=== PATIENT | male | born 1945 | race African-American/Black ===

== ENCOUNTER 2018-02-23 16:38 | Inpatient (IN) | payer MEDICARE, MEDICAID ==
[~2018-02-23] VITALS: Ht 195.6 cm; Wt 74.0 kg
[2018-02-23] MEDS ORDERED: Aspirin Baby 81mg ORAL ONE (16:45)
[2018-02-23 17:49] VITALS: BP 131/77
--- NOTE | 2018-02-23 18:14 | Emergency Room Report ---
History of Present Illness General Chief Complaint: General Complaint Source: Patient, Medical Record, EMS Present Illness HPI Patient presents emergency department today with multiple complaints. Patient states that he has been feeling dizzy weak now has developed acute onset of left -sided chest pain. Complains mild shortness of breath denies any fever nausea vomiting diarrhea chills present noted to be moderate to severe. No other modifying factors. No other associated signs and symptoms. No other complaints were noted. Allergies: Coded Allergies: No Known Allergies (Unverified , 07/25/15) Patient History Past Medical History: HTN, other - Abdominal s Past Surgical History: none Pertinent Family History: none Social History: Denies: smoking, alcohol use, drug use Reviewed Nursing Documentation: PMH: Agreed; PSxH: Agreed Nursing Documentation-PMH Past Medical History: No History, Except For Hx Hypertension: Yes Hx Gastrointestinal Problems: Yes - ABD SURGERY Review of Systems All Other Systems: negative except mentioned in HPI Physical Exam Vital Signs Date Time Temp Pulse Resp B/P (MAP) Pulse Ox O2 Delivery O2 Flow Rate FiO2 02/23/18 16:34 98.1 92 18 140/91 96 Room Air 98.1 Sp02 EP Interpretation: reviewed, normal General Appearance: normal inspection, well appearing, no apparent distress, alert Head: atraumatic Eyes: bilateral eye normal inspection ENT: normal ENT inspection, hearing grossly normal, normal voice Neck: normal inspection, full range of motion, supple, no bony tend Respiratory: normal inspection, lungs clear, normal breath sounds, no respiratory distress, no retraction, no wheezing Cardiovascular #1: regular rate, rhythm, no edema Gastrointestinal: normal inspection, normal bowel sounds, non tender, soft, no guarding, no hernia Genitourinary: no CVA tenderness Musculoskeletal: normal inspection, back normal, normal range of motion Neurologic: normal inspection, alert, responsive, speech normal Psychiatric: normal inspection, judgement/insight normal, mood/affect normal Skin: normal inspection, normal color, no rash Medical Decision Making Diagnostic Impression: Primary Impression: ACS (acute coronary syndrome) Additional Impression: Dizzy ER Course Patient presented to the emergency department today complaining of chest pain. Differential diagnoses include acute coronary syndrome, pulmonary embolism, pneumothorax, chest wall pain, pleurisy, pericarditis, acute anxiety reaction just to name a few. Given the severity of the patient's presentation I felt this is a highly complex patient. This patient required extensive workup. CBC , chemistry, EKG, chest x-ray, cardiac enzymes, liver profile were all obtained. 12-lead EKG performed for nontraumatic chest pain. [facility] documentation: EKG was performed. Please refer to below for interpretation.Patient had CBC and chemistry obtained. Both of which were normal. Patient's cardiac enzymes also normal. Except for slightly elevated CK. Patient had normal chest x-ray. Patient's EKG and rhythm strip are also normal. Given patient's risk factors advanced age I felt the patient require admission for further treatment. Case was discussed with Dr. Maura Love for admission. Labs Test 02/23/18 18:30 White Blood Count 4.7 K/UL (4.8-10.8) Red Blood Count 4.00 M/UL (4.70-6.10) Hemoglobin 12.3 G/DL (14.2-18.0) Hematocrit 38.4 % (42.0-52.0) Mean Corpuscular Volume 96 FL (80-99) Mean Corpuscular Hemoglobin 30.8 PG (27.0-31.0) Mean Corpuscular Hemoglobin Concent 32.0 G/DL (32.0-36.0) Red Cell Distribution Width 11.5 % (11.6-14.8) Platelet Count 188 K/UL (150-450) Mean Platelet Volume 7.2 FL (6.5-10.1) Neutrophils (%) (Auto) 45.2 % (45.0-75.0) Lymphocytes (%) (Auto) 42.9 % (20.0-45.0) Monocytes (%) (Auto) 6.5 % (1.0-10.0) Eosinophils (%) (Auto) 3.2 % (0.0-3.0) Basophils (%) (Auto) 2.3 % (0.0-2.0) Sodium Level 140 MMOL/L (136-145) Potassium Level 3.8 MMOL/L (3.5-5.1) Chloride Level 99 MMOL/L (98-107) Carbon Dioxide Level 34 MMOL/L (21-32) Anion Gap 7 mmol/L (5-15) Blood Urea Nitrogen 9 mg/dL (7-18) Creatinine 1.1 MG/DL (0.55-1.30) Estimat Glomerular Filtration Rate mL/min (>60) Glucose Level 83 MG/DL (74-106) Calcium Level 10.4 MG/DL (8.5-10.1) Total Bilirubin 0.6 MG/DL (0.2-1.0) Aspartate Amino Transf (AST/SGOT) 45 U/L (15-37) Alanine Aminotransferase (ALT/SGPT) 36 U/L (12-78) Alkaline Phosphatase 61 U/L (46-116) Total Creatine Kinase 501 U/L (26-308) Creatine Kinase MB 6.1 NG/ML (0.0-3.6) Creatine Kinase MB Relative Index 1.2 Troponin I 0.000 ng/mL (0.000-0.056) Pro-B-Type Natriuretic Peptide 105 pg/mL (0-125) Total Protein 9.6 G/DL (6.4-8.2) Albumin 4.3 G/DL (3.4-5.0) Globulin 5.3 g/dL Albumin/Globulin Ratio 0.8 (1.0-2.7) EKG Diagnostic Results Rate: normal Rhythm: NSR ST Segments: no acute changes Rhythm Strip Diag. Results EP Interpretation: yes Rate: 92 Rhythm: NSR, no PVC's, no ectopy Chest X-Ray Diagnostic Results Chest X-Ray Diagnostic Results : Chest X-Ray Ordered: Yes # of Views/Limited/Complete: 1 View Indication: Chest Pain EP Interpretation: Yes Interpretation: no consolidation, no effusion, no pneumothorax, no acute cardiopulmonary disease Impression: No acute disease Electronically Signed by: Electronically signed by Reji aMnzo MD Last Vital Signs Date Time Temp Pulse Resp B/P (MAP) Pulse Ox O2 Delivery O2 Flow Rate FiO2 02/23/18 17:49 77 17 131/77 97 Room Air 02/23/18 16:34 98.1 98.1 Status: improved Disposition: ADMITTED INPATIENT Condition: Serious Referrals: NON PHYSICIAN (PCP) Reji Manzo MD Feb 23, 2018 18:14
[2018-02-23 18:46] LABS: BASOPHILS % (AUTO) 2.3 % (0.0-2.0); EOSINOPHILS % (AUTO) 3.2 % (0.0-3.0); HEMATOCRIT 38.4 % (42.0-52.0); HEMOGLOBIN 12.3 G/DL (14.2-18.0); LYMPHOCYTES % (AUTO) 42.9 % (20.0-45.0); MEAN CORPUSCULAR VOLUME 96 FL (80-99); MONOCYTES % (AUTO) 6.5 % (1.0-10.0); NEUTROPHILS % (AUTO) 45.2 % (45.0-75.0); PLATELET COUNT 188 K/UL (150-450); RED CELL DISTRIBUTION WIDTH 11.5 % (11.6-14.8); WHITE BLOOD COUNT 4.7 K/UL (4.8-10.8)
[2018-02-23 18:52] LABS: ANION GAP 7 mmol/L (5-15); BLOOD UREA NITROGEN 9 mg/dL (7-18); CALCIUM 10.4 MG/DL (8.5-10.1); CARBON DIOXIDE 34 MMOL/L (21-32); CHLORIDE 99 MMOL/L (98-107); CREATININE 1.1 MG/DL (0.55-1.30); POTASSIUM 3.8 MMOL/L (3.5-5.1); SODIUM 140 MMOL/L (136-145)
[2018-02-23 19:05] LABS: ALANINE AMINOTRANSFERASE 36 U/L (12-78); ALBUMIN 4.3 G/DL (3.4-5.0); ALBUMIN/GLOBULIN RATIO 0.8 (1.0-2.7); ALKALINE PHOSPHATASE 61 U/L (46-116); ASPARTATE AMINO TRANSFERASE 45 U/L (15-37); BILIRUBIN,TOTAL 0.6 MG/DL (0.2-1.0); CKMB 6.1 NG/ML (0.0-3.6); CREATINE KINASE 501 U/L (26-308)
[2018-02-23 19:35] VITALS: BP 146/80
[2018-02-23 21:30] VITALS: BP 152/98
--- NOTE | 2018-02-23 23:13 | Cardiology Progress Note ---
Assessment/Plan Assessment/Plan The patient is seen and examined, full consult note will be dictated soon. Objective Last 24 Hour Vital Signs Date Time Temp Pulse Resp B/P (MAP) Pulse Ox O2 Delivery O2 Flow Rate FiO2 02/23/18 17:49 77 17 131/77 97 Room Air 02/23/18 16:34 98.1 92 18 140/91 96 Room Air 98.1 Laboratory Tests Test 02/23/18 18:30 White Blood Count 4.7 K/UL (4.8-10.8) L Red Blood Count 4.00 M/UL (4.70-6.10) L Hemoglobin 12.3 G/DL (14.2-18.0) L Hematocrit 38.4 % (42.0-52.0) L Mean Corpuscular Volume 96 FL (80-99) Mean Corpuscular Hemoglobin 30.8 PG (27.0-31.0) Mean Corpuscular Hemoglobin Concent 32.0 G/DL (32.0-36.0) Red Cell Distribution Width 11.5 % (11.6-14.8) L Platelet Count 188 K/UL (150-450) Mean Platelet Volume 7.2 FL (6.5-10.1) Neutrophils (%) (Auto) 45.2 % (45.0-75.0) Lymphocytes (%) (Auto) 42.9 % (20.0-45.0) Monocytes (%) (Auto) 6.5 % (1.0-10.0) Eosinophils (%) (Auto) 3.2 % (0.0-3.0) H Basophils (%) (Auto) 2.3 % (0.0-2.0) H Sodium Level 140 MMOL/L (136-145) Potassium Level 3.8 MMOL/L (3.5-5.1) Chloride Level 99 MMOL/L (98-107) Carbon Dioxide Level 34 MMOL/L (21-32) H Anion Gap 7 mmol/L (5-15) Blood Urea Nitrogen 9 mg/dL (7-18) Creatinine 1.1 MG/DL (0.55-1.30) Estimat Glomerular Filtration Rate mL/min (>60) Glucose Level 83 MG/DL (74-106) Calcium Level 10.4 MG/DL (8.5-10.1) H Total Bilirubin 0.6 MG/DL (0.2-1.0) Aspartate Amino Transf (AST/SGOT) 45 U/L (15-37) H Alanine Aminotransferase (ALT/SGPT) 36 U/L (12-78) Alkaline Phosphatase 61 U/L (46-116) Total Creatine Kinase 501 U/L (26-308) H Creatine Kinase MB 6.1 NG/ML (0.0-3.6) H Creatine Kinase MB Relative Index 1.2 Troponin I 0.000 ng/mL (0.000-0.056) Pro-B-Type Natriuretic Peptide 105 pg/mL (0-125) Total Protein 9.6 G/DL (6.4-8.2) H Albumin 4.3 G/DL (3.4-5.0) Globulin 5.3 g/dL Albumin/Globulin Ratio 0.8 (1.0-2.7) L Ramez Fiore MD Feb 23, 2018 23:13
[2018-02-24] MEDS ORDERED: Triamterene/Hctz 37.5/25 cap ORAL SCH (09:00)
--- NOTE | 2018-02-24 09:21 | Consultation ---
History of Present Illness General Date patient seen: Feb 24, 2018 Chief Complaint: Present Illness Allergies: Coded Allergies: No Known Allergies (Unverified , 07/25/15) Patient History Healthcare decision maker Resuscitation status Full Code Advanced Directive on File No Physical Exam Last 24 Hour Vital Signs Date Time Temp Pulse Resp B/P (MAP) Pulse Ox O2 Delivery O2 Flow Rate FiO2 02/24/18 04:00 69 02/24/18 00:00 59 02/23/18 23:00 Room Air 02/23/18 21:45 98.1 77 15 152/98 96 Room Air 98.1 02/23/18 21:35 83 02/23/18 21:30 97.2 86 15 152/98 99 Room Air 97.2 02/23/18 21:00 Room Air 02/23/18 19:35 97.9 80 17 146/80 99 Room Air 97.9 02/23/18 17:49 77 17 131/77 97 Room Air 02/23/18 16:34 98.1 92 18 140/91 96 Room Air 98.1 Intake and Output 02/23/18 02/24/18 19:00 07:00 Intake Total 120 ml Output Total 800 ml Balance -680 ml Intake Oral 120 ml Output Urine Total 800 ml # Voids 2 Laboratory Tests Test 02/23/18 18:30 02/23/18 23:45 White Blood Count 4.7 K/UL (4.8-10.8) L Red Blood Count 4.00 M/UL (4.70-6.10) L Hemoglobin 12.3 G/DL (14.2-18.0) L Hematocrit 38.4 % (42.0-52.0) L Mean Corpuscular Volume 96 FL (80-99) Mean Corpuscular Hemoglobin 30.8 PG (27.0-31.0) Mean Corpuscular Hemoglobin Concent 32.0 G/DL (32.0-36.0) Red Cell Distribution Width 11.5 % (11.6-14.8) L Platelet Count 188 K/UL (150-450) Mean Platelet Volume 7.2 FL (6.5-10.1) Neutrophils (%) (Auto) 45.2 % (45.0-75.0) Lymphocytes (%) (Auto) 42.9 % (20.0-45.0) Monocytes (%) (Auto) 6.5 % (1.0-10.0) Eosinophils (%) (Auto) 3.2 % (0.0-3.0) H Basophils (%) (Auto) 2.3 % (0.0-2.0) H Sodium Level 140 MMOL/L (136-145) Potassium Level 3.8 MMOL/L (3.5-5.1) Chloride Level 99 MMOL/L (98-107) Carbon Dioxide Level 34 MMOL/L (21-32) H Anion Gap 7 mmol/L (5-15) Blood Urea Nitrogen 9 mg/dL (7-18) Creatinine 1.1 MG/DL (0.55-1.30) Estimat Glomerular Filtration Rate mL/min (>60) Glucose Level 83 MG/DL (74-106) Calcium Level 10.4 MG/DL (8.5-10.1) H Total Bilirubin 0.6 MG/DL (0.2-1.0) Aspartate Amino Transf (AST/SGOT) 45 U/L (15-37) H Alanine Aminotransferase (ALT/SGPT) 36 U/L (12-78) Alkaline Phosphatase 61 U/L (46-116) Total Creatine Kinase 501 U/L (26-308) H Creatine Kinase MB 6.1 NG/ML (0.0-3.6) H Creatine Kinase MB Relative Index 1.2 Troponin I 0.000 ng/mL (0.000-0.056) 0.000 ng/mL (0.000-0.056) Pro-B-Type Natriuretic Peptide 105 pg/mL (0-125) Total Protein 9.6 G/DL (6.4-8.2) H Albumin 4.3 G/DL (3.4-5.0) Globulin 5.3 g/dL Albumin/Globulin Ratio 0.8 (1.0-2.7) L Height (Feet): 6 Height (Inches): 5.00 Weight (Pounds): 163 Medications Current Medications Medications (Trade) Dose Ordered Sig/Tena Route PRN Reason Start Time Stop Time Status Last Admin Dose Admin Acetaminophen (Tylenol) 650 mg Q4H PRN ORAL Mild Pain/Temp > 100.5 02/24/18 00:15 03/26/18 00:14 02/24/18 00:47 Aspirin (Ecotrin) 81 mg DAILY ORAL 02/24/18 09:00 03/26/18 08:59 Triamterene/HCTZ (Dyazide) 1 cap DAILY ORAL 02/24/18 09:00 03/26/18 08:59 Assessment/Plan Assessment/Plan (1) H/o Heroin abuse on methadone seen dictated. Emir Solorzano Feb 24, 2018 09:21
--- NOTE | 2018-02-24 09:32 | Diagnostic Imaging Report ---
Indication: Dizziness, right-sided numbness, blurry vision, pain since this morning Technique: spiral acquisitions obtained through the brain. Angled axial and coronal 5 x 5 mm slices were reconstructed. No IV contrast utilized. Radiation dose was minimized using automated exposure control Total dose length product 1516.84 mGycm. CTDIvol(s) 70.38 mGy Comparison: none FINDINGS: No acute hemorrhage or edema. No mass effect or midline shift. There is age-related enlargement of the ventricles and extra axial CSF spaces. There is periventricular deep white matter ischemic change. Normal kendall-white differentiation. Visualized orbits are unremarkable. Visualized sinuses are unremarkable. Intact calvarium. IMPRESSION: Chronic and age-related changes. Negative for acute intracranial bleed or mass effect This agrees with the preliminary interpretation provided overnight by Dr. Caldwell The CT scanner at [facility] is accredited by the [employer] and the scans are performed using protocols designed to limit radiation exposure to as low as reasonably achievable to attain images of sufficient resolution adequate for diagnostic evaluation
[2018-02-24] MEDS: Aspirin EC 81mg tab ORAL SCH (09:41)
--- NOTE | 2018-02-24 11:45 | Consultation ---
History of Present Illness General Date patient seen: Feb 24, 2018 Chief Complaint: General Complaint Present Illness HPI The patient is a 72 yo male with hx of depression and opioid dependence who presents emergency department with multiple complaints. During the eval the pt appears depressed and anxious. the pt is having pain seeking behavior. the pt stated that he has low appetite and not sleeping. the pt stated that he has pain all the time. Allergies: Coded Allergies: No Known Allergies (Unverified , 07/25/15) Patient History Limited by: medical condition History Provided By: Patient, Medical Record Healthcare decision maker Resuscitation status Full Code Advanced Directive on File No Past Medical/Surgical History Past Medical/Surgical History: (1) Abdominal pain (2) Dizzy (3) ACS (acute coronary syndrome) Review of Systems Psychiatric: Reports: prior hx, anxiety, depressed feelings Physical Exam General Appearance: no apparent distress, alert Neurologic: oriented x 3, responsive, depressed affect Last 24 Hour Vital Signs Date Time Temp Pulse Resp B/P (MAP) Pulse Ox O2 Delivery O2 Flow Rate FiO2 02/24/18 04:00 69 02/24/18 00:00 59 02/23/18 23:00 Room Air 02/23/18 21:45 98.1 77 15 152/98 96 Room Air 98.1 02/23/18 21:35 83 02/23/18 21:30 97.2 86 15 152/98 99 Room Air 97.2 02/23/18 21:00 Room Air 02/23/18 19:35 97.9 80 17 146/80 99 Room Air 97.9 02/23/18 17:49 77 17 131/77 97 Room Air 02/23/18 16:34 98.1 92 18 140/91 96 Room Air 98.1 Intake and Output 02/23/18 02/24/18 19:00 07:00 Intake Total 120 ml Output Total 800 ml Balance -680 ml Intake Oral 120 ml Output Urine Total 800 ml # Voids 2 Laboratory Tests Test 02/23/18 18:30 02/23/18 23:45 White Blood Count 4.7 K/UL (4.8-10.8) L Red Blood Count 4.00 M/UL (4.70-6.10) L Hemoglobin 12.3 G/DL (14.2-18.0) L Hematocrit 38.4 % (42.0-52.0) L Mean Corpuscular Volume 96 FL (80-99) Mean Corpuscular Hemoglobin 30.8 PG (27.0-31.0) Mean Corpuscular Hemoglobin Concent 32.0 G/DL (32.0-36.0) Red Cell Distribution Width 11.5 % (11.6-14.8) L Platelet Count 188 K/UL (150-450) Mean Platelet Volume 7.2 FL (6.5-10.1) Neutrophils (%) (Auto) 45.2 % (45.0-75.0) Lymphocytes (%) (Auto) 42.9 % (20.0-45.0) Monocytes (%) (Auto) 6.5 % (1.0-10.0) Eosinophils (%) (Auto) 3.2 % (0.0-3.0) H Basophils (%) (Auto) 2.3 % (0.0-2.0) H Sodium Level 140 MMOL/L (136-145) Potassium Level 3.8 MMOL/L (3.5-5.1) Chloride Level 99 MMOL/L (98-107) Carbon Dioxide Level 34 MMOL/L (21-32) H Anion Gap 7 mmol/L (5-15) Blood Urea Nitrogen 9 mg/dL (7-18) Creatinine 1.1 MG/DL (0.55-1.30) Estimat Glomerular Filtration Rate mL/min (>60) Glucose Level 83 MG/DL (74-106) Calcium Level 10.4 MG/DL (8.5-10.1) H Total Bilirubin 0.6 MG/DL (0.2-1.0) Aspartate Amino Transf (AST/SGOT) 45 U/L (15-37) H Alanine Aminotransferase (ALT/SGPT) 36 U/L (12-78) Alkaline Phosphatase 61 U/L (46-116) Total Creatine Kinase 501 U/L (26-308) H Creatine Kinase MB 6.1 NG/ML (0.0-3.6) H Creatine Kinase MB Relative Index 1.2 Troponin I 0.000 ng/mL (0.000-0.056) 0.000 ng/mL (0.000-0.056) Pro-B-Type Natriuretic Peptide 105 pg/mL (0-125) Total Protein 9.6 G/DL (6.4-8.2) H Albumin 4.3 G/DL (3.4-5.0) Globulin 5.3 g/dL Albumin/Globulin Ratio 0.8 (1.0-2.7) L Height (Feet): 6 Height (Inches): 5.00 Weight (Pounds): 163 Medications Current Medications Medications (Trade) Dose Ordered Sig/Tena Route PRN Reason Start Time Stop Time Status Last Admin Dose Admin Acetaminophen (Tylenol) 650 mg Q4H PRN ORAL Mild Pain/Temp > 100.5 02/24/18 00:15 03/26/18 00:14 02/24/18 00:47 Aspirin (Ecotrin) 81 mg DAILY ORAL 02/24/18 09:00 03/26/18 08:59 02/24/18 09:41 Triamterene/HCTZ (Dyazide) 1 cap DAILY ORAL 02/24/18 09:00 03/26/18 08:59 02/24/18 09:41 Assessment/Plan Status: stable Assessment/Plan MDD Opioid dependence -methadone 38mg daily -prozac 20mg qam -provided ro/Ming Jimenez MD Feb 24, 2018 11:45
[2018-02-24 12:00] VITALS: BP 155/46
--- NOTE | 2018-02-24 13:01 | Diagnostic Imaging Report ---
Indication: Cough Technique: One view of the chest Comparison: none Findings: Lungs and pleural spaces are clear. Heart size is normal Impression: No acute process
[2018-02-24 13:27] VITALS: BP 155/46
[2018-02-24 16:00] VITALS: BP 145/102
--- NOTE | 2018-02-24 16:00 | Consultation ---
DATE OF CONSULTATION: 02/23/2018 CARDIOLOGY CONSULTATION CONSULTING PHYSICIAN: Raemz Fiore M.D. REFERRING PHYSICIAN: Maura Cardenas M.D. REASON FOR CONSULTATION: Management of chest pain. HISTORY OF PRESENT ILLNESS: The patient is an very unfortunate 72-year-old gentleman who presents to the emergency department with mainly complains of dizziness and lightheadedness as well a great deal of weight loss. The patient upon arrival to the emergency department had also some complaints of chest pain and shortness of breath. Initial blood pressure at time of arrival to the hospital was 140/91, pulse of 92. A 12-lead electrocardiogram was significant for sinus rhythm at 92 with evidence of left ventricular hypertrophy but no acute ST and T-wave abnormalities. The patient had initial laboratory in the emergency department, which showed negative troponin I level and beta-natriuretic peptide of 105 which is within normal limits. PAST MEDICAL HISTORY: 1. Abdominal pain. 2. Hiccups. 3. Hypertension. PAST SURGICAL HISTORY: Abdominal surgery. MEDICATIONS: List of medications, none. ALLERGIES: No known drug allergies. FAMILY HISTORY: No premature coronary artery disease in first-degree relatives. SOCIAL HISTORY: Denies any tobacco, alcohol, or illicit drug use. REVIEW OF SYSTEMS: Complains of dizziness and lightheadedness.CONSTITUTIONAL: Generalized weakness. A great deal of weight loss recently. He denies any fever, chills, or night sweats. CVS: Chest pain as mentioned above in the left precordial area sharp associated shortness of breath but no PND, orthopnea, leg swelling, syncope, or palpitation. PULMONARY: Denies any cough, hemoptysis, or wheezing. GASTROINTESTINAL: Constant hiccupping, abdominal pain. Denies any nausea, vomiting, diarrhea. Complains of constipation but no GI bleed. GENITOURINARY: Denies any hematuria, dysuria, incontinence. NEUROLOGY: Denies any motor dysfunction, sensory deficit, or altered speech. PHYSICAL EXAMINATION: VITAL SIGNS: Blood pressure at time of arrival to the hospital was 140/91 respirations 18, pulse of 92, temperature 98.1 degrees Fahrenheit, and O2 saturation 96% on room air. GENERAL: The patient is a very unfortunate 72-year-old gentleman who appears cachectic, ambulatory with cane. HEENT: Atraumatic and normocephalic. Anicteric. Pupils are equal, round, and reactive to light and accommodation. Extraocular muscles intact. NECK: JVP less than 5 centimeter. No carotid bruit. Carotid upstrokes 2+ bilaterally. CARDIOVASCULAR: Normal S1, S2. Tachycardic. A 2/6 mid systolic murmur at the left sternal border. PMI is at fourth intercostal space at the midclavicular line. LUNGS: Clear to auscultation bilaterally. ABDOMEN: Soft, nontender, and nondistended. No hepatosplenomegaly. Positive bowel sounds. EXTREMITIES: No evidence of edema, clubbing, or cyanosis. LABORATORY AND DIAGNOSTIC DATA: A 12-lead electrocardiogram, sinus rhythm at a rate of 92 with LVH and no acute ischemic features. WBC is 4.7, hemoglobin 12.3, hematocrit 38.4, and platelet count is 188. Sodium was 140 potassium is 3.8, chloride 99, bicarbonate 34, BUN of 9, creatinine 1.1, glucose is 83, calcium is 10.4. Troponin I x1 is negative. BNP is 105. ASSESSMENT AND PLAN: The patient is a very unfortunate 72-year-old gentleman seen in Cardiology consultation at request of Dr. Cardenas. 1. Most likely noncardiac chest pain. It appears that the patient's main problem of dizziness, lightheadedness, constant hiccupping, also great deal of weight loss as the patient shows significant bitemporal wasting. 2. He claims that he had recent endoscopies upper and lower done at [facility]. 3. Acute myocardial infarction is ruled out. A 12-lead electrocardiogram is significant for LVH but no acute ischemic features. We will obtain another set of troponin I to essentially rule out acute myocardial infarction. 4. History of hypertension. It appears that the patient is on no medications. We will continue monitoring the blood pressure. If necessary, we will start on oral agents in the morning. 5. History of abdominal surgery. I would like to thank, Dr. Cardenas, for courtesy of this consultation. Ramez Fiore M.D. DR: Jorge JOB#: [id number] CC:
--- NOTE | 2018-02-24 16:10 | Cardiology Report ---
APPROVED REPORT EKG Measurement Heart [id number] Normal sinus rhythm Minimal voltage criteria for LVH, may be normal variant Borderline ECG
[2018-02-24 20:00] VITALS: BP 133/95
--- NOTE | 2018-02-24 20:30 | Consultation ---
DATE OF CONSULTATION: 02/24/2018 PAIN MANAGEMENT CONSULTATION CONSULTING PHYSICIAN: Gisel Herman M.D. REFERRING PHYSICIAN: Maura Cardenas M.D. PHYSICIAN FISHERY BIOLOGIST: Josie Abdi CHIEF COMPLAINT: Heroin abuse. HISTORY PRESENT ILLNESS: The patient is a 72-year-old male who is being seen on telemetry floor of [facility] for initial comprehensive pain management consultation. The patient was admitted under the care of Dr. Cardenas, complaining of chest pain, being seen by casing grader to rule out ACS. Reports that he has a history of heroin abuse on methadone 38mg daily, last took the dose yesterday, brought to the clinic. The nurse will verify the dosage. Once verified, we will discuss with the casing grader about restarting the methadone if cleared. PAST MEDICAL HISTORY: Hypertension. PAST SURGICAL HISTORY: Denies. SOCIAL HISTORY: Denies smoking tobacco, drinking alcohol, however has history of heroin abuse. ALLERGIES: No known drug allergies. MEDICATIONS: Methadone. REVIEW OF SYSTEMS: Denies rash, fever, chills, sweating, dizziness, drowsiness, blurred vision, or change in weight. No shortness of breath or chest pain. No nausea, vomiting, diarrhea, or blood in the stool or urine. No bowel or bladder incontinence. No dysuria. He is complaining of heroin abuse. PHYSICAL EXAMINATION: GENERAL: Alert, awake, and oriented. VITAL SIGNS: Blood pressure 150/98, heart rate 77, oxygen saturation 96%, respiratory rate 16, temperature 98.1 degrees Fahrenheit. HEENT: PERRLA. NECK: Range of motion is decreased due to the patient's condition. LUNGS: Decreased breath sounds bilaterally. HEART: S1 and S2 regular. ABDOMEN: Benign. BACK: Range of motion is decreased in flexion and extension. EXTREMITIES: Upper and lower extremity range of motion is decreased due to the patient's condition. No cyanosis. No clubbing. Sensory is intact. Reflexes are not obtainable. No adenopathy. ASSESSMENT AND PLAN: This is a 72-year-old male with history of heroin abuse on methadone maintenance. Once cleared by a casing grader to be started on methadone, we will start the methadone if verified by the nurse with the methadone clinic at 38mg daily. The patient was discussed with Dr. Herman and Dr. Herman concurred. We will follow the patient. Thank you very much for the courtesy of this consultation. Gisel Herman M.D. JESUS Abdi DR: Alysha JOB#: [id number] CC: CORINNE
--- NOTE | 2018-02-24 21:18 | Consultation ---
Consult Note Consult Note Patient presents emergency department today with multiple complaints. Patient states that he has been feeling dizzy weak now has developed acute onset of left -sided chest pain. Complains mild shortness of breath denies any fever nausea vomiting diarrhea chills present noted to be moderate to severe. No other modifying factors. No other associated signs and symptoms. No other complaints were noted. Allergies: Coded Allergies: No Known Allergies (Unverified , 07/25/15) Past Medical History: HTN, other - Abdominal s Past Surgical History: none Pertinent Family History: none Social History: Denies: smoking, alcohol use, drug use Reviewed Nursing Documentation: PMH: Agreed; PSxH: Agreed Past Medical History: No History, Except For Hx Hypertension: Yes Hx Gastrointestinal Problems: Yes - ABD SURGERY Assessment/Plan Hypercalcemia Anemia HTN DC HCTZ IV Fluid monitor Ca and Phos and lytes Urine tox screen Lai Benítez MD Feb 24, 2018 21:18
[2018-02-24] MEDS: D5 1/2NS 1,000 ML IV SCH (22:42)
--- NOTE | 2018-02-24 23:55 | Cardiology Progress Note ---
Assessment/Plan Assessment/Plan 1. Most likely noncardiac chest pain, AMI is ruled out, it appears that the patient's main problem is narcotic withdrawal with complaints of dizziness, lightheadedness, hiccupping, bitemporal wasting, will consider clonidine. 12- lead electrocardiogram is significant for LVH but no acute ischemic features. 2. History of hypertension. 3. History of abdominal surgery. Subjective Subjective Sinus rhythm at 76. Objective Last 24 Hour Vital Signs Date Time Temp Pulse Resp B/P (MAP) Pulse Ox O2 Delivery O2 Flow Rate FiO2 02/24/18 21:00 Room Air 02/24/18 20:00 98.2 98 22 133/95 (108) 92 98.2 02/24/18 19:17 92 02/24/18 16:11 115 02/24/18 16:00 98.4 129 24 145/102 (116) 92 98.4 129 02/24/18 13:27 98.0 100 23 155/46 (82) 94 98.0 100 02/24/18 12:03 93 02/24/18 12:00 98.0 100 23 155/46 (82) 94 98.0 100 02/24/18 08:30 Room Air 02/24/18 07:43 76 02/24/18 04:00 69 02/24/18 00:00 59 Intake and Output 02/23/18 02/24/18 19:00 07:00 Intake Total 120 ml Output Total 800 ml Balance -680 ml Intake Oral 120 ml Output Urine Total 800 ml # Voids 2 Objective HEENT: Atraumatic and normocephalic. Anicteric. Pupils are equal, round, and reactive to light and accommodation. Extraocular muscles intact. NECK: JVP less than 5 centimeter. No carotid bruit. Carotid upstrokes 2+ bilaterally. CARDIOVASCULAR: Normal S1, S2. A 2/6 mid systolic murmur at the left sternal border. PMI is at fourth intercostal space at the midclavicular line. LUNGS: Clear to auscultation bilaterally. ABDOMEN: Soft, nontender, and nondistended. No hepatosplenomegaly. Positive bowel sounds. EXTREMITIES: No evidence of edema, clubbing, or cyanosis. Ramez Fiore MD Feb 24, 2018 23:55
[2018-02-25] VITALS: BP 153/99
--- NOTE | 2018-02-25 00:07 | Cardiology Progress Note ---
Assessment/Plan Assessment/Plan 1. Most likely noncardiac chest pain, AMI is ruled out, it appears that the patient's main problem is narcotic withdrawal with complaints of dizziness, lightheadedness, hiccupping, bitemporal wasting, will consider clonidine. 12- lead electrocardiogram is significant for LVH but no acute ischemic features. 2. History of hypertension. 3. History of abdominal surgery. Subjective Subjective Sinus rhythm at 76. Objective Last 24 Hour Vital Signs Date Time Temp Pulse Resp B/P (MAP) Pulse Ox O2 Delivery O2 Flow Rate FiO2 02/24/18 21:00 Room Air 02/24/18 20:00 98.2 98 22 133/95 (108) 92 98.2 02/24/18 19:17 92 02/24/18 16:11 115 02/24/18 16:00 98.4 129 24 145/102 (116) 92 98.4 129 02/24/18 13:27 98.0 100 23 155/46 (82) 94 98.0 100 02/24/18 12:03 93 02/24/18 12:00 98.0 100 23 155/46 (82) 94 98.0 100 02/24/18 08:30 Room Air 02/24/18 07:43 76 02/24/18 04:00 69 Intake and Output 02/24/18 02/25/18 19:00 07:00 Intake Total 400 ml Output Total 800 ml Balance -400 ml Intake Oral 400 ml Output Urine Total 800 ml # Bowel Movements 1 Objective HEENT: Atraumatic and normocephalic. Anicteric. Pupils are equal, round, and reactive to light and accommodation. Extraocular muscles intact. NECK: JVP less than 5 centimeter. No carotid bruit. Carotid upstrokes 2+ bilaterally. CARDIOVASCULAR: Normal S1, S2. A 2/6 mid systolic murmur at the left sternal border. PMI is at fourth intercostal space at the midclavicular line. LUNGS: Clear to auscultation bilaterally. ABDOMEN: Soft, nontender, and nondistended. No hepatosplenomegaly. Positive bowel sounds. EXTREMITIES: No evidence of edema, clubbing, or cyanosis. Ramez Fiore MD Feb 25, 2018 00:07
--- NOTE | 2018-02-25 00:30 | History and Physical Report ---
DATE OF ADMISSION: 02/23/2018 HISTORY OF PRESENT ILLNESS: The patient is admitted for chest pain, rule out acute coronary syndrome. The patient basically had left-sided chest wall pain yesterday. The patient also takes methadone and also was feeling dizzy and also has intractable hiccups, takes baclofen. The patient's chest pain is made worse with deep inspiration. Denies palpitation. No shortness of breath. Denies cough. Denies nausea, vomiting, or diarrhea. Denies orthopnea. PAST MEDICAL HISTORY: Significant for history of drug abuse, history of hypertension, and intractable hiccups. PAST SURGICAL HISTORY: None. MEDICATIONS: Takes baclofen, methadone, aspirin, and hydrochlorothiazide. FAMILY HISTORY: Does have history of hypertension. SOCIAL HISTORY: The patient has history of smoking and history of drug abuse. Denies alcohol abuse. REVIEW OF SYSTEMS: HEENT: headaches. RESPIRATORY: Denies shortness of breath. Denies cough. CARDIOVASCULAR: Does have chest pain/left-sided chest wall pain x1. Does not radiate to the back. It is made worse on deep inspiration. Methadone has been relieving it. GASTROINTESTINAL: Denies nausea, vomiting, or diarrhea. EXTREMITIES: Denies pain in lower extremities. PHYSICAL EXAMINATION: VITAL SIGNS: Temperature 97.2 degrees, pulse is 86, and blood pressure 152/98. HEENT: PERRLA. NECK: Supple. No lymphadenopathy. CHEST: Clear to auscultation. GASTROINTESTINAL: Soft, nontender, and nondistended. No organomegaly. EXTREMITIES: No edema. Moves all four extremities. Sensory intact to light touch. Reflexes on both sides. LABORATORY AND DIAGNOSTIC DATA: EKG showed no significant EKG changes. WBC of 4.7, hemoglobin 12.3, and platelets 188. Sodium 140, potassium 3.8, BUN of 9, and creatinine 1.1. Troponin is negative. ASSESSMENT AND PLAN: Chest pain, rule out acute coronary syndrome. I have asked Dr. Benítez and Dr. Fiore to see the patient for chest pain, rule out acute coronary syndrome even though it seems like atypical presentation at this point, but does have risk factors. We will monitor closely. Maura Cardenas M.D. DR: Ximena JOB#: [id number] CC:
[2018-02-25 04:00] VITALS: BP 110/69
[2018-02-25 08:00] VITALS: BP 117/71
[2018-02-25] MEDS ORDERED: Lexiscan 0.4mg/5ml syringe IV SCH (08:00)
[2018-02-25 08:14] LABS: APPEARANCE,URINE CLEAR; BILIRUBIN, URINE NEGATIVE (NEGATIVE); GLUCOSE, URINE (UA) NEGATIVE (NEGATIVE); KETONES,URINE NEGATIVE (NEGATIVE); LEUKOCYTE ESTERASE ,URINE NEGATIVE (NEGATIVE); NITRITE,URINE NEGATIVE (NEGATIVE); PH,URINE 7 (4.5-8.0); PROTEIN,URINE 1+ (NEGATIVE); UROBILINOGEN,URINE 1 MG/DL (0.0-1.0)
[2018-02-25 08:15] LABS: COLOR,URINE YELLOW
[2018-02-25] MEDS: Aspirin EC 81mg tab ORAL SCH (09:14)
--- NOTE | 2018-02-25 09:21 | General Progress Note ---
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 D/w Dr. Herman and he concurred. Subjective Date patient seen: Feb 25, 2018 Time patient seen: 07:45 - am Constitutional: Reports: no symptoms HEENT: Reports: no symptoms Cardiovascular: Reports: no symptoms Respiratory: Reports: no symptoms Gastrointestinal/Abdominal: Reports: no symptoms Genitourinary: Reports: no symptoms Neurologic/Psychiatric: Reports: no symptoms Endocrine: Reports: no symptoms Hematologic/Lymphatic: Reports: no symptoms Allergies: Coded Allergies: No Known Allergies (Unverified , 07/25/15) Subjective He is in bed and tolerating the methadone with no new complaints. Objective Last 24 Hour Vital Signs Date Time Temp Pulse Resp B/P (MAP) Pulse Ox O2 Delivery O2 Flow Rate FiO2 02/25/18 08:00 97.4 87 18 117/71 (86) 96 97.4 02/25/18 05:52 68 02/25/18 05:32 110/69 02/25/18 04:00 97.5 78 20 110/69 (83) 97 97.5 02/25/18 00:57 135/81 02/25/18 00:00 99.0 93 20 153/99 (117) 94 99.0 02/24/18 23:33 93 02/24/18 21:00 Room Air 02/24/18 20:00 98.2 98 22 133/95 (108) 92 98.2 02/24/18 19:17 92 02/24/18 16:11 115 02/24/18 16:00 98.4 129 24 145/102 (116) 92 98.4 129 02/24/18 13:27 98.0 100 23 155/46 (82) 94 98.0 100 02/24/18 12:03 93 02/24/18 12:00 98.0 100 23 155/46 (82) 94 98.0 100 Intake and Output 02/24/18 02/25/18 19:00 07:00 Intake Total 400 ml 103 ml Output Total 800 ml 600 ml Balance -400 ml -497 ml Intake Oral 400 ml IV Total 103 ml Output Urine Total 800 ml 600 ml # Voids 3 # Bowel Movements 1 Laboratory Tests 02/25/18 07:00: Urine Color Yellow, Urine Appearance Clear, Urine pH 7, Urine Specific [place] 1.010, Urine Protein 1+H, Urine Glucose (UA) Negative, Urine Ketones Negative, Urine Blood Negative, Urine Nitrite Negative, Urine Bilirubin Negative, Urine Urobilinogen 1H, Urine Leukocyte Esterase Negative, Urine RBC 0-2H, Urine WBC 0- 2, Urine Squamous Epithelial Cells Occasional, Urine Bacteria Occasional Height (Feet): 6 Height (Inches): 5.00 Weight (Pounds): 163 General Appearance: no apparent distress, alert EENT: PERRL/EOMI, normal ENT inspection Neck: non-tender, normal alignment Cardiovascular: normal rate, regular rhythm Respiratory/Chest: lungs clear, normal breath sounds Abdomen: non tender, soft Extremities: non-tender Edema: no edema noted Arm (L), no edema noted Arm (R), no edema noted Leg (L), no edema noted Leg (R), no edema noted Pedal (L), no edema noted Pedal (R), no edema noted Generalized Skin: warm/dry Emir Solorzano Feb 25, 2018 09:21
[2018-02-25] MEDS: D5 1/2NS 1,000 ML IV SCH (11:20)
[2018-02-25 11:39] LABS: BASOPHILS % (AUTO) 1.5 % (0.0-2.0); EOSINOPHILS % (AUTO) 0.8 % (0.0-3.0); HEMATOCRIT 44.2 % (42.0-52.0); LYMPHOCYTES % (AUTO) 32.8 % (20.0-45.0); MEAN CORPUSCULAR VOLUME 93 FL (80-99); PLATELET COUNT 120 K/UL (150-450); RED BLOOD COUNT 4.73 M/UL (4.70-6.10); RED CELL DISTRIBUTION WIDTH 11.7 % (11.6-14.8); WHITE BLOOD COUNT 4.6 K/UL (4.8-10.8)
[2018-02-25 12:00] VITALS: BP 152/84
[2018-02-25 12:22] LABS: ALANINE AMINOTRANSFERASE 39 U/L (12-78); ALBUMIN 4.1 G/DL (3.4-5.0); ALBUMIN/GLOBULIN RATIO 0.7 (1.0-2.7); ALKALINE PHOSPHATASE 58 U/L (46-116); ANION GAP 9 mmol/L (5-15); ASPARTATE AMINO TRANSFERASE 46 U/L (15-37); BILIRUBIN,TOTAL 0.6 MG/DL (0.2-1.0); BLOOD UREA NITROGEN 15 mg/dL (7-18); CARBON DIOXIDE 28 MMOL/L (21-32); CHLORIDE 99 MMOL/L (98-107); FERRITIN 181 NG/ML (8-388); PHOSPHORUS 3.6 MG/DL (2.5-4.9); POTASSIUM 4.6 MMOL/L (3.5-5.1); SODIUM 136 MMOL/L (136-145)
[2018-02-25 12:31] LABS: CALCIUM 10.1 MG/DL (8.5-10.1)
[2018-02-25 12:51] LABS: % IRON SATURATION 28 % (15-50); IRON 111 ug/dL (50-175); TOTAL IRON BINDING CAPACITY 400 ug/dL (250-450)
--- NOTE | 2018-02-25 14:28 | Diagnostic Imaging Report ---
Indication: chest pain Technique: The study was conducted under the supervision of a finish mender. lexiscan (regadenoson) infusion over 10 seconds followed by intravenous administration of 32.8 mCi of technetium 99m Myoview was performed. Three plane SPECT imaging of the heart was then performed. A resting study was performed as part of the one-day protocol with 10.6 mCi of technetium 99m myoview injected intravenously at that time. Three plane SPECT imaging of the heart was obtained. Comparison: None Clinical data: 1. Clinical response: Non ischemic 2. Electrocardiographic response: Non ischemic Findings: The myocardial perfusion scan demonstrates no definite reversible perfusion defects to suggest ischemia. There is a apparent mild hypoperfusion in the apical region and distal anterior wall which could be artifactual. Small apical infarct not excluded. IMPRESSION: No evidence of myocardial ischemia. Hypoperfused apical region could be artifact or secondary to a small myocardial infarct. Correlate clinically. LVEF 61%
[2018-02-25 16:00] VITALS: BP 126/77
--- NOTE | 2018-02-25 17:50 | Consultation ---
Consult Note Consult Note HEMATOLOGY ONCOLOGY CONUSULTATION DATE OF CONSULTATION: 02/25/2018 CONSULTING PHYSICIAN: Link Cavazos REFERRING PHYSICIAN: Maura Cardenas M.D. REASON FOR CONSULTATION: Leukopenia and thrombocytopenia HISTORY OF PRESENT ILLNESS: Unfortunate 72-year-old gentleman who presents to the emergency department with mainly complains of dizziness and lightheadedness as well a great deal of weight loss. The patient upon arrival to the emergency department had also some complaints of chest pain and shortness of breath. Initial blood pressure at time of arrival to the hospital was 140/91, pulse of 92. A 12-lead electrocardiogram was significant for sinus rhythm at 92 with evidence of left ventricular hypertrophy but no acute STand T-wave abnormalities. The patient had initial laboratory in the emergency department, which showed negative troponin I level and beta-natriuretic peptide of 105 which is within normal limits. Noted to have anemia, leukopenia and low plts and heme was consulted. PAST MEDICAL HISTORY: 1. Abdominal pain. 2. Hiccups. 3. Hypertension. PAST SURGICAL HISTORY: Abdominal surgery. MEDICATIONS: List of medications, none. ALLERGIES: No known drug allergies. FAMILY HISTORY: No premature coronary artery disease in first-degree relatives. SOCIAL HISTORY: Denies any tobacco, alcohol, or illicit drug use. REVIEW OF SYSTEMS: Complains of dizziness and lightheadedness. CONSTITUTIONAL: Generalized weakness. He denies any fever, chills, or night sweats. CVS:Chest pain as mentioned above in the left precordial area, no PND, orthopnea , leg swelling, syncope, or palpitation. PULMONARY: Denies any cough, hemoptysis, or wheezing. GASTROINTESTINAL: Constant hiccupping, abdominal pain. Denies any nausea, vomiting, diarrhea. GENITOURINARY: Denies any hematuria, dysuria, incontinence. NEUROLOGY: Denies any motor dysfunction, sensory deficit, or altered speech. Laboratory Tests Test 02/25/18 07:00 02/25/18 11:30 Urine Color Yellow Urine Appearance Clear Urine pH 7 (4.5-8.0) Urine Specific [place] 1.010 (1.005-1.035) Urine Protein 1+ (NEGATIVE) H Urine Glucose (UA) Negative (NEGATIVE) Urine Ketones Negative (NEGATIVE) Urine Blood Negative (NEGATIVE) Urine Nitrite Negative (NEGATIVE) Urine Bilirubin Negative (NEGATIVE) Urine Urobilinogen 1 MG/DL (0.0-1.0) H Urine Leukocyte Esterase Negative (NEGATIVE) Urine RBC 0-2 /HPF (0 - 0) H Urine WBC 0-2 /HPF (0 - 0) Urine Squamous Epithelial Cells Occasional /LPF Urine Bacteria Occasional /HPF (NONE) White Blood Count 4.6 K/UL (4.8-10.8) L Red Blood Count 4.73 M/UL (4.70-6.10) Hemoglobin 14.0 G/DL (14.2-18.0) L Hematocrit 44.2 % (42.0-52.0) Mean Corpuscular Volume 93 FL (80-99) Mean Corpuscular Hemoglobin 29.6 PG (27.0-31.0) Mean Corpuscular Hemoglobin Concent 31.6 G/DL (32.0-36.0) L Red Cell Distribution Width 11.7 % (11.6-14.8) Platelet Count 120 K/UL (150-450) L Mean Platelet Volume 10.5 FL (6.5-10.1) H Neutrophils (%) (Auto) 59.0 % (45.0-75.0) Lymphocytes (%) (Auto) 32.8 % (20.0-45.0) Monocytes (%) (Auto) 6.0 % (1.0-10.0) Eosinophils (%) (Auto) 0.8 % (0.0-3.0) Basophils (%) (Auto) 1.5 % (0.0-2.0) Sodium Level 136 MMOL/L (136-145) Potassium Level 4.6 MMOL/L (3.5-5.1) Chloride Level 99 MMOL/L (98-107) Carbon Dioxide Level 28 MMOL/L (21-32) Anion Gap 9 mmol/L (5-15) Blood Urea Nitrogen 15 mg/dL (7-18) Creatinine 1.0 MG/DL (0.55-1.30) Estimat Glomerular Filtration Rate mL/min (>60) Glucose Level 116 MG/DL (74-106) H Uric Acid 8.0 MG/DL (2.6-7.2) H Calcium Level 10.1 MG/DL (8.5-10.1) Phosphorus Level 3.6 MG/DL (2.5-4.9) Magnesium Level 1.7 MG/DL (1.8-2.4) L Iron Level 111 ug/dL (50-175) Total Iron Binding Capacity 400 ug/dL (250-450) Percent Iron Saturation 28 % (15-50) Unsaturated Iron Binding 289 ug/dL (112-346) Ferritin 181 NG/ML (8-388) Total Bilirubin 0.6 MG/DL (0.2-1.0) Aspartate Amino Transf (AST/SGOT) 46 U/L (15-37) H Alanine Aminotransferase (ALT/SGPT) 39 U/L (12-78) Alkaline Phosphatase 58 U/L (46-116) C-Reactive Protein, Quantitative < 0.4 mg/dL (0.00-0.90) Pro-B-Type Natriuretic Peptide 98 pg/mL (0-125) Total Protein 9.8 G/DL (6.4-8.2) H Albumin 4.1 G/DL (3.4-5.0) Globulin 5.7 g/dL Albumin/Globulin Ratio 0.7 (1.0-2.7) L Vitamin B12 Level 582 PG/ML (193-986) Folate 23.7 NG/ML (8.6-58.9) Thyroid Stimulating Hormone (TSH) 0.948 uiU/mL (0.358-3.740) PHYSICAL EXAMINATION: VITAL SIGNS: Blood pressure at time of arrival to the hospital was 140/91 respirations 18, pulse of 92, temperature 98.1 degrees Fahrenheit, and O2 saturation 96% on room air. GENERAL: The patient is a very unfortunate 72-year-old gentleman who appears cachectic HEENT: Atraumatic and normocephalic. Anicteric. Pupils are equal, round, and reactive to light and accommodation. NECK: JVP less than 5 centimeter. No carotid bruit. Carotid upstrokes 2+ bilaterally. CARDIOVASCULAR: Normal S1, S2. Tachycardic. A 2/6 mid systolic murmur at the left sternal border. LUNGS: Clear to auscultation bilaterally. ABDOMEN: Soft, nontender, and nondistended. No hepatosplenomegaly. Positive bowel sounds. EXTREMITIES: No evidence of edema, clubbing, or cyanosis. LABORATORY AND DIAGNOSTIC DATA: A 12-lead electrocardiogram, sinus rhythm at a rate of 92 with LVH and no acute ischemic features. Laboratory Tests Test 02/25/18 07:00 02/25/18 11:30 Urine Color Yellow Urine Appearance Clear Urine pH 7 (4.5-8.0) Urine Specific [place] 1.010 (1.005-1.035) Urine Protein 1+ (NEGATIVE) H Urine Glucose (UA) Negative (NEGATIVE) Urine Ketones Negative (NEGATIVE) Urine Blood Negative (NEGATIVE) Urine Nitrite Negative (NEGATIVE) Urine Bilirubin Negative (NEGATIVE) Urine Urobilinogen 1 MG/DL (0.0-1.0) H Urine Leukocyte Esterase Negative (NEGATIVE) Urine RBC 0-2 /HPF (0 - 0) H Urine WBC 0-2 /HPF (0 - 0) Urine Squamous Epithelial Cells Occasional /LPF Urine Bacteria Occasional /HPF (NONE) White Blood Count 4.6 K/UL (4.8-10.8) L Red Blood Count 4.73 M/UL (4.70-6.10) Hemoglobin 14.0 G/DL (14.2-18.0) L Hematocrit 44.2 % (42.0-52.0) Mean Corpuscular Volume 93 FL (80-99) Mean Corpuscular Hemoglobin 29.6 PG (27.0-31.0) Mean Corpuscular Hemoglobin Concent 31.6 G/DL (32.0-36.0) L Red Cell Distribution Width 11.7 % (11.6-14.8) Platelet Count 120 K/UL (150-450) L Mean Platelet Volume 10.5 FL (6.5-10.1) H Neutrophils (%) (Auto) 59.0 % (45.0-75.0) Lymphocytes (%) (Auto) 32.8 % (20.0-45.0) Monocytes (%) (Auto) 6.0 % (1.0-10.0) Eosinophils (%) (Auto) 0.8 % (0.0-3.0) Basophils (%) (Auto) 1.5 % (0.0-2.0) Sodium Level 136 MMOL/L (136-145) Potassium Level 4.6 MMOL/L (3.5-5.1) Chloride Level 99 MMOL/L (98-107) Carbon Dioxide Level 28 MMOL/L (21-32) Anion Gap 9 mmol/L (5-15) Blood Urea Nitrogen 15 mg/dL (7-18) Creatinine 1.0 MG/DL (0.55-1.30) Estimat Glomerular Filtration Rate mL/min (>60) Glucose Level 116 MG/DL (74-106) H Uric Acid 8.0 MG/DL (2.6-7.2) H Calcium Level 10.1 MG/DL (8.5-10.1) Phosphorus Level 3.6 MG/DL (2.5-4.9) Magnesium Level 1.7 MG/DL (1.8-2.4) L Iron Level 111 ug/dL (50-175) Total Iron Binding Capacity 400 ug/dL (250-450) Percent Iron Saturation 28 % (15-50) Unsaturated Iron Binding 289 ug/dL (112-346) Ferritin 181 NG/ML (8-388) Total Bilirubin 0.6 MG/DL (0.2-1.0) Aspartate Amino Transf (AST/SGOT) 46 U/L (15-37) H Alanine Aminotransferase (ALT/SGPT) 39 U/L (12-78) Alkaline Phosphatase 58 U/L (46-116) C-Reactive Protein, Quantitative < 0.4 mg/dL (0.00-0.90) Pro-B-Type Natriuretic Peptide 98 pg/mL (0-125) Total Protein 9.8 G/DL (6.4-8.2) H Albumin 4.1 G/DL (3.4-5.0) Globulin 5.7 g/dL Albumin/Globulin Ratio 0.7 (1.0-2.7) L Vitamin B12 Level 582 PG/ML (193-986) Folate 23.7 NG/ML (8.6-58.9) Thyroid Stimulating Hormone (TSH) 0.948 uiU/mL (0.358-3.740) ASSESSMENT AND PLAN: # Thrombocytopenia -- appears to be downtrending 100-200k --> hepatitis and hiv panel have been reviewed --> us of the abdomen has been reviewed # Leukopenia -- appears to be decreased as well --> viral studies and imaging ordered --> 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 --> GI eval has been consulted --> Anemia panel has been reviewed --> hgb goal >7 # Noncardiac chest pain. It appears that the patient's main problem of dizziness , lightheadedness, constant hiccupping, also great deal of weight loss as the patient shows significant bitemporal wasting. --> cards recs appreciated # History of hypertension. It appears that the patient is on no medications. We will continue monitoring the blood pressure. --> sbp goal less than 140 if started on po drugs # History of abdominal surgery Greatly appreciate consultation! Dereck Cavazos MD Feb 25, 2018 17:49
--- NOTE | 2018-02-25 18:13 | Nephrology Progress Note ---
Assessment/Plan Problem List: (1) Dehydration (2) Hypercalcemia Assessment Hypercalcemia Anemia HTN Plan DC HCTZ IV Fluid monitor Ca and Phos and lytes Urine tox screen Subjective ROS Limited/Unobtainable: No Objective Objective Last 24 Hour Vital Signs Date Time Temp Pulse Resp B/P (MAP) Pulse Ox O2 Delivery O2 Flow Rate FiO2 02/25/18 16:00 98.1 86 18 126/77 (93) 98 98.1 02/25/18 15:29 73 02/25/18 14:21 152/84 02/25/18 12:00 97.3 79 18 152/84 (106) 100 97.3 02/25/18 12:00 87 02/25/18 08:20 Room Air 02/25/18 08:00 97.4 87 18 117/71 (86) 96 97.4 02/25/18 07:38 71 02/25/18 05:52 68 02/25/18 05:32 110/69 02/25/18 04:00 97.5 78 20 110/69 (83) 97 97.5 02/25/18 00:57 135/81 02/25/18 00:00 99.0 93 20 153/99 (117) 94 99.0 02/24/18 23:33 93 02/24/18 21:00 Room Air 02/24/18 20:00 98.2 98 22 133/95 (108) 92 98.2 02/24/18 19:17 92 Intake and Output 02/24/18 02/25/18 19:00 07:00 Intake Total 400 ml 103 ml Output Total 800 ml 600 ml Balance -400 ml -497 ml Intake Oral 400 ml IV Total 103 ml Output Urine Total 800 ml 600 ml # Voids 3 # Bowel Movements 1 Laboratory Tests 02/25/18 07:00: Urine Color Yellow, Urine Appearance Clear, Urine pH 7, Urine Specific [place] 1.010, Urine Protein 1+H, Urine Glucose (UA) Negative, Urine Ketones Negative, Urine Blood Negative, Urine Nitrite Negative, Urine Bilirubin Negative, Urine Urobilinogen 1H, Urine Leukocyte Esterase Negative, Urine RBC 0-2H, Urine WBC 0- 2, Urine Squamous Epithelial Cells Occasional, Urine Bacteria Occasional 02/25/18 11:30: White Blood Count 4.6L, Red Blood Count 4.73, Hemoglobin 14.0L, Hematocrit 44.2 , Mean Corpuscular Volume 93, Mean Corpuscular Hemoglobin 29.6, Mean Corpuscular Hemoglobin Concent 31.6L, Red Cell Distribution Width 11.7, Platelet Count 120L, Mean Platelet Volume 10.5H, Neutrophils (%) (Auto) 59.0, Lymphocytes (%) (Auto) 32.8, Monocytes (%) (Auto) 6.0, Eosinophils (%) (Auto) 0.8, Basophils (%) (Auto) 1.5, Neutrophils % (Manual) [Pending], Lymphocytes % ( Manual) [Pending], Platelet Estimate [Pending], Platelet Morphology [Pending], Reticulocyte Count [Pending], Sodium Level 136, Potassium Level 4.6, Chloride Level 99, Carbon Dioxide Level 28, Anion Gap 9, Blood Urea Nitrogen 15, Creatinine 1.0, Estimat Glomerular Filtration Rate , Glucose Level 116H, Uric Acid 8.0H, Calcium Level 10.1, Phosphorus Level 3.6, Magnesium Level 1.7L, Iron Level 111, Total Iron Binding Capacity 400, Percent Iron Saturation 28, Unsaturated Iron Binding 289, Ferritin 181, Total Bilirubin 0.6, Aspartate Amino Transf (AST/SGOT) 46H, Alanine Aminotransferase (ALT/SGPT) 39, Alkaline Phosphatase 58, C-Reactive Protein, Quantitative < 0.4, Pro-B-Type Natriuretic Peptide 98, Total Protein 9.8H, Albumin 4.1, Globulin 5.7, Albumin/Globulin Ratio 0.7L, Vitamin B12 Level 582, Folate 23.7, Thyroid Stimulating Hormone (TSH ) 0.948, HIV (1&2) Antibody Rapid [Pending] Height (Feet): 6 Height (Inches): 5.00 Weight (Pounds): 163 General Appearance: no apparent distress Objective no change Lai Benítez MD Feb 25, 2018 18:13
[2018-02-25] MEDS ORDERED: D5 1/2NS 1000ml IV ONE (18:41)
--- NOTE | 2018-02-25 23:55 | Cardiology Progress Note ---
Assessment/Plan Assessment/Plan 1. Most likely noncardiac chest pain most likely due to narcotic withdrawal, AMI is ruled out, nuclear stress test today to rule out obstructive CAD. 2. History of hypertension. 3. History of abdominal surgery. Subjective Subjective Sinus rhythm at 87. Nuclear stress test in progress. Peripheral IV is in place. Objective Last 24 Hour Vital Signs Date Time Temp Pulse Resp B/P (MAP) Pulse Ox O2 Delivery O2 Flow Rate FiO2 02/25/18 16:00 98.1 86 18 126/77 (93) 98 98.1 02/25/18 15:29 73 02/25/18 14:21 152/84 02/25/18 12:00 97.3 79 18 152/84 (106) 100 97.3 02/25/18 12:00 87 02/25/18 08:20 Room Air 02/25/18 08:00 97.4 87 18 117/71 (86) 96 97.4 02/25/18 07:38 71 02/25/18 05:52 68 02/25/18 05:32 110/69 02/25/18 04:00 97.5 78 20 110/69 (83) 97 97.5 02/25/18 00:57 135/81 02/25/18 00:00 99.0 93 20 153/99 (117) 94 99.0 Intake and Output 02/24/18 02/25/18 19:00 07:00 Intake Total 400 ml 103 ml Output Total 800 ml 600 ml Balance -400 ml -497 ml Intake Oral 400 ml IV Total 103 ml Output Urine Total 800 ml 600 ml # Voids 3 # Bowel Movements 1 Laboratory Tests Test 02/25/18 07:00 02/25/18 11:30 Urine Color Yellow Urine Appearance Clear Urine pH 7 (4.5-8.0) Urine Specific [place] 1.010 (1.005-1.035) Urine Protein 1+ (NEGATIVE) H Urine Glucose (UA) Negative (NEGATIVE) Urine Ketones Negative (NEGATIVE) Urine Blood Negative (NEGATIVE) Urine Nitrite Negative (NEGATIVE) Urine Bilirubin Negative (NEGATIVE) Urine Urobilinogen 1 MG/DL (0.0-1.0) H Urine Leukocyte Esterase Negative (NEGATIVE) Urine RBC 0-2 /HPF (0 - 0) H Urine WBC 0-2 /HPF (0 - 0) Urine Squamous Epithelial Cells Occasional /LPF Urine Bacteria Occasional /HPF (NONE) White Blood Count 4.6 K/UL (4.8-10.8) L Red Blood Count 4.73 M/UL (4.70-6.10) Hemoglobin 14.0 G/DL (14.2-18.0) L Hematocrit 44.2 % (42.0-52.0) Mean Corpuscular Volume 93 FL (80-99) Mean Corpuscular Hemoglobin 29.6 PG (27.0-31.0) Mean Corpuscular Hemoglobin Concent 31.6 G/DL (32.0-36.0) L Red Cell Distribution Width 11.7 % (11.6-14.8) Platelet Count 120 K/UL (150-450) L Mean Platelet Volume 10.5 FL (6.5-10.1) H Neutrophils (%) (Auto) 59.0 % (45.0-75.0) Lymphocytes (%) (Auto) 32.8 % (20.0-45.0) Monocytes (%) (Auto) 6.0 % (1.0-10.0) Eosinophils (%) (Auto) 0.8 % (0.0-3.0) Basophils (%) (Auto) 1.5 % (0.0-2.0) Differential Total Cells Counted 100 Neutrophils % (Manual) 48 % (45-75) Lymphocytes % (Manual) 44 % (20-45) Monocytes % (Manual) 6 % (1-10) Eosinophils % (Manual) 0 % (0-3) Basophils % (Manual) 1 % (0-2) Band Neutrophils 1 % (0-8) Platelet Estimate Decreased L Platelet Morphology Normal Red Blood Cell Morphology Normal Polychromasia Anisocytosis Reticulocyte Count 1.5 % (0.0-2.0) Sodium Level 136 MMOL/L (136-145) Potassium Level 4.6 MMOL/L (3.5-5.1) Chloride Level 99 MMOL/L (98-107) Carbon Dioxide Level 28 MMOL/L (21-32) Anion Gap 9 mmol/L (5-15) Blood Urea Nitrogen 15 mg/dL (7-18) Creatinine 1.0 MG/DL (0.55-1.30) Estimat Glomerular Filtration Rate mL/min (>60) Glucose Level 116 MG/DL (74-106) H Uric Acid 8.0 MG/DL (2.6-7.2) H Calcium Level 10.1 MG/DL (8.5-10.1) Phosphorus Level 3.6 MG/DL (2.5-4.9) Magnesium Level 1.7 MG/DL (1.8-2.4) L Iron Level 111 ug/dL (50-175) Total Iron Binding Capacity 400 ug/dL (250-450) Percent Iron Saturation 28 % (15-50) Unsaturated Iron Binding 289 ug/dL (112-346) Ferritin 181 NG/ML (8-388) Total Bilirubin 0.6 MG/DL (0.2-1.0) Aspartate Amino Transf (AST/SGOT) 46 U/L (15-37) H Alanine Aminotransferase (ALT/SGPT) 39 U/L (12-78) Alkaline Phosphatase 58 U/L (46-116) C-Reactive Protein, Quantitative < 0.4 mg/dL (0.00-0.90) Pro-B-Type Natriuretic Peptide 98 pg/mL (0-125) Total Protein 9.8 G/DL (6.4-8.2) H Albumin 4.1 G/DL (3.4-5.0) Globulin 5.7 g/dL Albumin/Globulin Ratio 0.7 (1.0-2.7) L Vitamin B12 Level 582 PG/ML (193-986) Folate 23.7 NG/ML (8.6-58.9) Thyroid Stimulating Hormone (TSH) 0.948 uiU/mL (0.358-3.740) HIV (1&2) Antibody Rapid Negative (NEGATIVE) Objective HEENT: Atraumatic and normocephalic. Anicteric. Pupils are equal, round, and reactive to light and accommodation. Extraocular muscles intact. NECK: JVP less than 5 centimeter. No carotid bruit. Carotid upstrokes 2+ bilaterally. CARDIOVASCULAR: Normal S1, S2. A 2/6 mid systolic murmur at the left sternal border. PMI is at fourth intercostal space at the midclavicular line. LUNGS: Clear to auscultation bilaterally. ABDOMEN: Soft, nontender, and nondistended. No hepatosplenomegaly. Positive bowel sounds. EXTREMITIES: No evidence of edema, clubbing, or cyanosis. Ramez Fiore MD Feb 25, 2018 23:55
--- NOTE | 2018-02-26 01:15 | Progress Note ---
DATE: 02/25/2018 SUBJECTIVE: The patient is calm in bed, no acute distress. He is on methadone. The patient does not show any med-seeking behaviors at this time, however, complaining of pain. MENTAL STATUS EXAMINATION: The patient is alert and oriented to time, self, place, and situation. Mood is dysphoric. Affect is constricted. Congruent mood. Thought process is concrete. Thought content, no suicidal or homicidal ideations. PLAN: 1. Continue methadone 38 mg a day. 2. Provide the patient with reality orientation and supportive therapy. 3. The patient will be referred to addiction outpatient programs to maintain sobriety. Ming Kapoor M.D. DR: ROEL JOB#: [id number] CC:
--- NOTE | 2018-02-26 08:51 | Discharge Summary ---
Discharge Summary Discharge Summary _ DATE OF ADMISSION: 02/23/2018 DATE OF DISCHARGE: 02/25/2018 CONSULTANTS: Dr. Ramez Herman BRIEF HOSPITAL COURSE: Patient is a 72-year-old male, who presented to ED by EMS for evaluation of weakness, dizziness and acute onset left sided chest pain. He complained of mild shortness of breath. Denied any fever, nausea, vomiting, diarrhea or chills. Patient takes methadone. He also has intractable hiccups, chest pain was made worse with deep inspiration. He has medical history significant for hypertension, intractable hiccups and history of drug abuse. On evaluation at ED, vital signs were stable. Blood work did not show any leukocytoses. Electrolytes were stable. Troponin was negative. BNP was normal. CK-MB was slightly elevated 6.1, total CK 501. Calcium was 10.4 . EKG was in normal sinus rhythm with no acute changes. Chest x-ray done was without acute process. Head CT showed chronic age-related changes. Negative for acute intracranial bleed or mass effect. He was then admitted for evaluation of acute coronary syndrome. He underwent cardiac evaluation. Cardiac enzymes were monitored. 12-lead lead electrocardiogram was without evidence of acute ST or T-wave abnormalities. He was given aspirin daily. He was placed on clonidine 0.1 mg tid for blood pressure control. Dyazide was discontinued. TSH was normal. Calcium levels normalized. Cardiac enzymes were negative. He underwent myocardial perfusion scan. There was no definite reversible perfusion defect to suggest ischemia. Ejection fraction 61%. During his stay he was seen by painter decorator. He has history of heroine abuse and was continued on methadone. He was given IV hydration. He had leukopenia, anemia and thrombocytopenia. HIV panel was negative. Anemia was stable and did not require any blood transfusion. Patient has anemia of chronic disease and had recent endoscopies done at [facility]. Cardiac workup done was negative. Patient had noncardiac chest pain. His pain most likely due to narcotic withdrawal. Patient was cleared for discharge home. 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 DISCHARGE MEDICATIONS: Refer to Discharge Medication List. DISCHARGE INSTRUCTIONS: Follow up within a week. I have been assigned to dictate discharge summary on this account, and I was not involved in the patient's management. Mary Rahman NP Feb 26, 2018 08:51
== END 2018-02-25 18:42 | disposition home health service (06) | DRG 897 ==
LOC: EDBD 16:38 → EMR 16:59 → 2E 18:30 → EDBEDREQ 19:52
DX: F11.23 Opioid dependence with withdrawal (principal); R07.89 Other chest pain; I10 Essential (primary) hypertension; E86.0 Dehydration; E83.52 Hypercalcemia; D63.8 Anemia in other chronic diseases classified elsewhere; D69.6 Thrombocytopenia, unspecified; R06.6 Hiccough; R63.4 Abnormal weight loss
CPT/HCPCS: 36415; 70450; 71045; 78452; 80053; 81001; 82550; 82553; 82607; 82728; 82746; 83540; 83550; 83735; 83880; 84100; 84443; 84484; 84550; 85007; 85025; 85044; 85060; 86140; 86703; 93005; 93017; 99285; J2405; J2785